=== PATIENT | female | born 1940 | race African-American/Black ===

== ENCOUNTER 2024-09-17 17:34 | Emergency (ER) | payer OTHER ==
[~2024-09-17] VITALS: Ht 167.6 cm; Wt 60.0 kg
[2024-09-17 17:36] VITALS: O2SAT 100
[2024-09-17] MEDS: SODIUM CHLORIDE 0.9% 1,000 ML IV ONE (18:00)
[2024-09-17] MEDS: OLANZAPINE 10 MG/VIAL IM ONE (18:34)
[2024-09-17] MEDS: LORAZEPAM 2MG/ML UD SYRINGE IM SCH (18:34)
[2024-09-17 19:23] LABS: BASOPHILS % 0.7 % (0.0-2.0); EOSINOPHILS % 3.9 % (0.0-5.0); HEMATOCRIT. 35.3 % (36.0-48.0); HEMOGLOBIN. 11.4 g/dL (12.0-16.0); LYMPHOCYTES % 25.2 % (20.0-50.0); MEAN PLATELET VOLUME 9.9 fl (7.4-10.4); MONOCYTES % 9.9 % (2.0-8.0); NEUTROPHILS % 60.3 % (40.0-76.0); PLATELET 139 x1000/uL (130-400); RED BLOOD CELL COUNT 3.96 mill/uL (4.2-5.4); RED CELL DISTRIBUTION WIDTH 13.8 % (11.6-14.6)
[2024-09-17 19:41] LABS: CREATININE 1.1 mg/dL (0.6-1.0)
[2024-09-17 19:42] LABS: TROPONIN I HIGH SENSITIVITY 12 ng/L (3.0-34); UREA NITROGEN BLOOD 23 mg/dL (9-23)
[2024-09-17 19:43] LABS: ASPARTATE AMINOTRANSFERASE 25 IU/L (<34)
[2024-09-17 19:44] LABS: BILIRUBIN DIRECT 0.2 mg/dL (<=3.0); BILIRUBIN TOTAL 0.6 mg/dL (0.1-1.0); PROTEIN TOTAL 6.3 g/dL (6.0-8.3)
[2024-09-17] MEDS: SODIUM CHLORIDE 0.9% (SEPSIS BOLUS) IV ONE (20:43)
[2024-09-17] MEDS: CEFTRIAXONE 1GM/50ML 50 ML IV ONE (20:43)
[2024-09-17] MEDS: LORAZEPAM 2MG/ML UD SYRINGE IV SCH (21:00)
[2024-09-17 22:53] LABS: CLARITY URINE CLEAR (CLEAR); COLOR URINE YELLOW (YELLOW); GLUCOSE URINE NEGATIVE (NEGATIVE); KETONES URINE TRACE (NEGATIVE); LEUKOCYTE ESTERASE URINE NEGATIVE (NEGATIVE); NITRITE URINE NEGATIVE (NEGATIVE); OCCULT BLOOD URINE NEGATIVE (NEGATIVE); PH URINE 7.0 (4.5-8.0); PROTEIN URINE NEGATIVE (NEGATIVE); SPECIFIC GRAVITY URINE 1.009 (1.005-1.030); UROBILINOGEN URINE 0.2 E.U./dL (0.2-1.0)
[2024-09-18] MEDS ORDERED: AZITHROMYCIN 500MG/250ML 250 ML IV ONE (00:30)
[2024-09-18] MEDS ORDERED: ONDANSETRON HCL 4MG/2ML INJ IV PRN (00:45)
[2024-09-18] MEDS ORDERED: ACETAMINOPHEN 325MG TABLET PO PRN ×2 (00:45)
[2024-09-18] MEDS ORDERED: GUAIFENESIN 200MG/10ML SUGAR FREE UDC PO PRN (00:45)
[2024-09-18] MEDS ORDERED: CLONIDINE 0.1MG TABLET PO PRN (00:45)
[2024-09-18] MEDS ORDERED: DOCUSATE SODIUM 100MG CAPSULE PO PRN (00:45)
[2024-09-18] MEDS: AZITHROMYCIN 500MG/250ML 250 ML IV NR (00:45)
[2024-09-18] MEDS ORDERED: IPRATROPIUM/ALBUTEROL 0.5-3(2.5)MG/3ML NEB HHN PRN (00:45)
[2024-09-18] MEDS ORDERED: DEXT 5%/0.2% NACL 1,000 ML IV SCH (00:45)
[2024-09-18] MEDS: AZITHROMYCIN 500MG/250ML 250 ML IV ONE (00:49)
[2024-09-18] MEDS ORDERED: SODIUM CHLORIDE 0.9% 1,000 ML IV SCH (01:15)
[2024-09-18 01:24] LABS: PHOSPHORUS 3.1 mg/dL (2.5-4.9)
[2024-09-18 01:55] VITALS: BP 176/111; PULSE 83; RESP 13; TEMP 36.6; O2SAT 95
[2024-09-18] MEDS ORDERED: HYDRALAZINE 20MG/ML VIAL IV PRN (06:30)
[2024-09-18] MEDS ORDERED: DEXT 5%/0.9% NACL 1,000 ML IV SCH (06:30)
[2024-09-18] MEDS ORDERED: ENOXAPARIN 30MG/0.3ML SYR SUBCUT SCH (09:00)
[2024-09-18 13:28] LABS: *AMPHETAMINES SCREEN URINE NEGATIVE (NEGATIVE)
[2024-09-18 13:29] LABS: *BARBITURATES SCREEN URINE NEGATIVE (NEGATIVE); *BENZODIAZEPINES SCREEN URINE NEGATIVE (NEGATIVE); *COCAINE SCREEN URINE NEGATIVE (NEGATIVE); CANNABINOID URINE SCREEN NEGATIVE (NEGATIVE); ECSTASY MDMA SCREEN URINE NEGATIVE (NEGATIVE); METHADONE URINE SCREEN NEGATIVE (NEGATIVE); OPIATES URINE SCREEN NEGATIVE (NEGATIVE); PHENCYCLIDINE URINE SCREEN NEGATIVE (NEGATIVE)
== END 2024-09-18 02:30 | disposition short-term general hospital (02) ==
LOC: ER 17:34 → EDBEDREQTM 09-18 00:37 → EDBEDREQ 09-18 00:37 → EDBEDREQDT 09-18 00:37 → ER 09-18 02:30 → CMPBEDREQ 09-20 08:01
DX: R41.82 Altered mental status, unspecified (principal); D32.9 Benign neoplasm of meninges, unspecified; F03.911 Unspecified dementia, unspecified severity, with agitation; I10 Essential (primary) hypertension; Z90.710 Acquired absence of both cervix and uterus; Z91.83 Wandering in diseases classified elsewhere; Z79.899 Other long term (current) drug therapy
CPT/HCPCS: 99285; 70450; 96365; 96361; 71045; 80076; 80305; 80048; 81003; 82550; 83605; 83690; 83735; 84100; 84443; 85025; 87040; 87086; 84484; 36415; 74176; 93005; 96372; 96367; J3490; J0696; J2060; J7030; J0456